=== PATIENT | male | born 1985 | race Two or more races ===

== ENCOUNTER 2022-12-20 19:33 | Emergency (ER) | payer MEDICAID, OTHER ==
[~2022-12-20] VITALS: Ht 162.6 cm; Wt 98.0 kg
[2022-12-20 20:34] LABS: Urine Bacteria NONE SEEN /hpf (None Seen); Urine Blood TRACE /uL (Negative); Urine Mucus FEW (None Seen); Urine Specific Gravity 1.019 (1.001-1.035); Urine WBC <1 /hpf (0 - 3)
[2022-12-20] MEDS ORDERED: KETOROLAC TROMETH 60MG/2ML VIAL IM ONE (20:45)
[2022-12-20] MEDS ORDERED: ONDANSETRON ODT 4 MG TAB PO ONE (20:45)
[2022-12-20 21:05] LABS: Basophils # (auto) 0 10 ^3/uL (0-0.2); Basophils % (auto) 0.4 % (0.0-2.0); Eosinophils # (auto) 0.3 10 ^3/uL (0-0.8); Eosinophils % (auto) 2.4 % (0.0-7.0); Hematocrit 43.1 % (41.0-53.0); Hemoglobin 14.1 g/dL (13.5-17.5); Lymphocytes # (auto) 2.7 10 ^3/uL (0.4-5.4); Lymphocytes % (auto) 24.8 % (10.0-50.0); Mean Corpuscular Hemoglobin 27.5 pg (28.0-32.0); Mean Corpuscular Hgb Conc. 32.8 g/dL (32.0-36.0); Mean Corpuscular Volume 83.6 fL (80.0-100.0); Monocytes # (auto) 0.7 10 ^3/uL (0-1.3); Monocytes % (auto) 6.4 % (0.0-12.0); Neutrophils # (auto) 7.2 10 ^3/uL (1.6-8.6); Nucleated Red Blood Cells % 0.1 %; Red Blood Cells 5.15 10^6/uL (4.5-5.90); Red Cell Distribution Width 14.3 % (11.8-14.3)
[2022-12-20 21:08] LABS: Albumin 3.8 g/dL (3.4-5.0); Calcium 8.9 mg/dL (8.5-10.1); Potassium 4.4 mmol/L (3.5-5.1)
[2022-12-20 21:13] LABS: BUN/Creatinine Ratio 8.7 (10.0-20.0); Bilirubin, Total 0.3 mg/dL (0.2-1.0)
[2022-12-20] MEDS ORDERED: HYDR-4902 PO (22:46)
[2022-12-20] MEDS ORDERED: ZOFR4T PO (22:46)
[2022-12-20] MEDS ORDERED: IBUP-1456 PO (22:46)
[2022-12-20 23:09] VITALS: BP 111/69
== END 2022-12-20 23:09 | disposition home or self-care (01) ==
LOC: ER 19:33
DX: N20.0 Calculus of kidney (principal)
CPT/HCPCS: 36415; 74176; 80053; 81001; 83690; 85025; 96372; 99285; J1885; Q0162